=== PATIENT | female | born 1990 | race Caucasian/White ===

== ENCOUNTER 2019-04-21 09:21 | Emergency (ER) | payer MEDICAID ==
[~2019-04-21] VITALS: Ht 170.2 cm; Wt 65.2 kg
[2019-04-21 09:30] VITALS: Ht 170.2 cm; Wt 65.2 kg
[2019-04-21 10:00] LABS: APPEARANCE CLEAR (CLEAR); BILIRUBIN NEGATIVE (NEGATIVE); COLOR YELLOW (YELLOW); GLUCOSE NEGATIVE (NEGATIVE); KETONE NEGATIVE (NEGATIVE); NITRITE NEGATIVE (NEGATIVE); PROTEIN TRACE mg/dL (NEGATIVE); UROBILINOGEN NORMAL (NORMAL)
[2019-04-21 10:01] LABS: BACTERIA FEW /hpf (NEGATIVE); EPITHELIAL CELLS 0-5 /hpf (0-5); RED CELLS - URINE 0-5 /hpf (0-5); WHITE CELLS - URINE 0-5 /hpf (NEGATIVE)
[2019-04-21 10:02] LABS: MUCUS >1+ /lpf (NONE SEEN)
[2019-04-21] MEDS ORDERED: AUGMENTIN 875-11 TAB PO (10:07)
[2019-04-21] MEDS ORDERED: MINOCYCLINE HCL75 M1 PO (10:07)
[2019-04-21 10:27] LABS: BASOPHILS 0 % (0-2); HEMATOCRIT 38.8 % (36.0-48.0); HEMOGLOBIN 12.4 g/dL (12-16); IMMATURE GRANULOCYTES 0.2 % (0-5); LYMPHOCYTES 33.9 % (15-50); MCV 90.7 fL (80.0-100.0); MONOCYTES 7.3 % (2-11); NEUTROPHILS 56.6 % (40-80); PLATELET COUNT 204 10x3/uL (130-400); RBC 4.28 10x6/uL (4.00-5.40); RDW 15.5 % (11.5-14.5); WBC 5.1 10x3/uL (4.8-10.8)
[2019-04-21 10:38] LABS: CALC OSMOLALITY 275 mosm/kg (275-300); CALCIUM 8.7 mg/dL (8.5-10.1); CARBON DIOXIDE 28.1 mmol/L (21.0-32.0); CHLORIDE - SERUM 105 mmol/L (98-107); CREATININE - SERUM 0.7 mg/dL (0.6-1.3); GLUCOSE 78 mg/dL (74-106); POTASSIUM - SERUM 3.8 mmol/L (3.5-5.1); SODIUM 139 mmol/L (136-145); UREA NITROGEN 11 mg/dL (7-18); eGFR NON AFRICAN AMERICAN > 90 mL/min (90-120)
[2019-04-21 10:44] LABS: ALBUMIN 3.5 g/dL (3.4-5.0); ALKALINE PHOSPHATASE 73 U/L (46-116); ALT (SGPT) 23 U/L (10-68); MAGNESIUM - SERUM 1.9 mg/dL (1.8-2.4)
--- NOTE | 2019-04-21 10:54 | NUR ---
DR. ROBERTS NOTIFIED AND REVIEWED PT'S BEHAVIOR ADN ASSESSMENT RESULTS. PT IS A LOW RISK PER DR. ROBERTS. DR. ROBERTS STATED TO GIVE RESOURCES TO PT AT TIME OF DISCHARGE. NO FURTHER ORDERS AT THIS TIME. RESOURCES REVIEWED WITH PT AND SHE VERBALIZIED UNDERSTANDING.
[2019-04-21 11:36] VITALS: BP 105/51
== END 2019-04-21 11:34 | disposition home or self-care (01) ==
LOC: D.ER 09:21
PROVIDERS: Emergency Medicine
DX: J01.90 Acute sinusitis, unspecified (principal); J45.909 Unspecified asthma, uncomplicated